=== PATIENT | female | born 1970 | race Caucasian/White ===

== ENCOUNTER 2017-06-11 04:54 | Emergency (ER) | payer MEDICAID, OTHER ==
[~2017-06-11] VITALS: Ht 157.5 cm; Wt 87.0 kg
[~2017-06-11 04:54] MED LIST: CIPR500T4 PO; GLIP5TAB13 PO; HYDR-3498 PO; HYDR-762 PO
[2017-06-11 04:57] VITALS: Ht 157.5 cm; Wt 87.0 kg
[2017-06-11] MEDS ORDERED: ONDANSETRON 4 MG INJ IV STA (05:05)
[2017-06-11] MEDS ORDERED: morphine 4 MG/ML VIAL IV STA (05:05)
[2017-06-11] MEDS ORDERED: HYDR-906 PO (05:08)
[2017-06-11] MEDS ORDERED: IBUP-1542 PO (05:08)
--- NOTE | 2017-06-11 05:14 | ERA ---
ER Documentation Chief Complaint Date/Time DATE: 06/11/17 TIME: 05:09 Chief Complaint RUQ pain since last night with a hx of gallstones HPI The patient is a 45-year-old female, presenting to the ER because of right upper quadrant abdominal pain that began about 10 PM last night after eating. She has similar symptoms previously due to gallbladder attack. She denies fever , chills, neck pain, chest pain, dyspnea, nausea, vomiting, dysuria, diarrhea, constipation. She does not smoke nor drink Past medical history: Diabetes mellitus, cholelithiasis Past surgical history: None ROS All systems reviewed and are negative except as per history of present illness. Medications Home Meds Active Scripts Ibuprofen* (Motrin*) 600 Mg Tab, 600 MG PO Q6, #30 TAB Prov:PERLA REYES MD 06/11/17 Hydrocodone/Acetaminophen (Ebony 5-325 Tablet) 1 Each Tablet, 1 TAB PO Q6H Y for PAIN, #7 TAB Prov:PERLA REYES MD 06/11/17 Hydrocodone Bit-Acetaminophen* (Ebony*) 5-325 Mg Tab, 1 TAB PO Q6 Y for PAIN, # 7 TAB Prov:CASSY LAUGHLIN PA-C 03/01/16 Hydrocodone Bit-Acetaminophen* (Ebony*) 10-325 Mg Tablet, 1 TAB PO Q6 Y for PAIN , #20 TAB Prov:JASKARAN MELENDREZ 10/02/15 Ciprofloxacin Hcl* (Ciprofloxacin Hcl*) 500 Mg Tablet, 500 MG PO BID for 7 Days , TAB Prov:JASKARAN MELENDREZ 10/02/15 Reported Medications Glipizide* (Glipizide*) 5 Mg Tablet, 5 MG PO DAILY, TAB 10/02/15 Allergies Allergies: Coded Allergies: No Known Allergy (Unverified , 10/02/15) PMhx/Soc Hx Miscellaneous Medical Probl: Yes (DM) Hx Alcohol Use: No Hx Substance Use: No Hx Tobacco Use: No Physical Exam Vitals Vital Signs Date Time Temp Pulse Resp B/P Pulse Ox O2 Delivery O2 Flow Rate FiO2 06/11/17 04:57 98.3 78 20 127/60 98 Physical Exam Const: No acute distress. Head: Atraumatic. Eyes: Normal Conjunctiva. ENT: Normal External Ears, Nose and Mouth. Neck: Full range of motion. No meningismus. Resp: Clear to auscultation bilaterally. Cardio: Regular rate and rhythm. Abd: Soft, non distended, normal bowel sounds, mild right upper quadrant tenderness, no right lower quadrant, epigastric, CVA tenderness Skin: No petechiae or rashes. Back: No midline or flank tenderness. Ext: No cyanosis, or edema. Neur: Awake and alert. No focal deficit Psych: Normal Mood and Affect. Results 24 hrs Current Medications Medications (Trade) Dose Ordered Sig/Iván Route PRN Reason Start Time Stop Time Status Last Admin Dose Admin Sodium Chloride (NS) 1,000 ml @ 1,000 mls/hr Q1H ONCE IV 06/11/17 05:30 06/11/17 06:29 Morphine Sulfate (morphine) 4 mg ONCE STAT IV 06/11/17 05:05 06/11/17 05:07 DC Ondansetron HCl (Zofran Inj) 4 mg ONCE STAT IV 06/11/17 05:05 06/11/17 05:07 DC Procedures/MDM MEDICAL MAKING DECISION: The patient is a 46-year-old female, presenting with acute biliary colic. She was treated with 1 L normal saline, morphine 4 mg IV for pain, Zofran 4 mg IV for nausea with good response. The labs are pending. If the labs are unremarkable, she is stable for outpatient follow-up The differential diagnoses considered include but are not limited to cholelithiasis, cholecystitis, cystitis, pancreatitis, hepatitis, gastritis, peptic ulcer disease, gastric ulcer, appendicitis, diverticulitis, cholangitis, choledocholithiasis, partial small bowel obstruction. Departure Diagnosis: Primary Impression: Biliary colic Condition: Good Patient Instructions: Biliary Colic With Gallstone (Confirmed) Additional Instructions: Call your primary care doctor TOMORROW for an appointment general surgery for elective cholecystectomy during the next 2-3 days.See the doctor sooner or return here if your condition worsens before your appointment time. She was discharged with Ebony and Motrin Labs are pending at the time of dictation PERLA REYES MD Jun 11, 2017 05:14
[2017-06-11 05:21] LABS: URINE BLOOD (Dip) POC Trace-lysed (NEGATIVE)
[2017-06-11] MEDS ORDERED: SOD CHLORIDE 0.9% 1,000 ML IV ONE (05:30)
[2017-06-11 05:31] LABS: ADD SCAN DIFF NO
[2017-06-11 05:32] LABS: BASOPHILS % 0.4 % (0.0-2.0); EOSINOPHILS # 0.1 10^3/ul (0.0-0.5); EOSINOPHILS % 1.2 % (0.0-7.0); HEMATOCRIT 35.4 % (37.0-47.0); HEMOGLOBIN 11.5 g/dl (12.0-16.0); LYMPHOCYTES # 2.1 10^3/ul (0.8-2.9); LYMPHOCYTES % 20.5 % (15.0-51.0); MEAN CORPUSCULAR HEMOGLOBIN 28.9 pg (29.0-33.0); MEAN CORPUSCULAR HGB CONC 32.5 g/dl (32.0-37.0); MEAN CORPUSCULAR VOLUME 88.9 fl (82.0-101.0); MEAN PLATELET VOLUME 10.7 fl (7.4-10.4); MONOCYTE # 0.8 10^3/ul (0.3-0.9); MONOCYTES % 7.6 % (0.0-11.0); NEUTROPHIL # 7.3 10^3/ul (1.6-7.5); NEUTROPHILS % 69.9 % (39.0-77.0); PLATELET COUNT 254 10^3/UL (140-415); RED BLOOD COUNT 3.98 10^6/ul (4.20-5.40); WHITE BLOOD COUNT 10.4 10^3/ul (4.8-10.8)
[2017-06-11 05:51] LABS: ALBUMIN 4.2 g/dl (3.3-4.9); ALBUMIN/GLOBULIN RATIO 1.55; BILIRUBIN,INDIRECT 0.1 mg/dl (0-1.1); BILIRUBIN,TOTAL 0.1 mg/dl (0.2-1.3); CALCIUM 8.4 mg/dl (8.4-10.2); CREATININE 0.59 mg/dl (0.44-1.00); POTASSIUM 3.9 mmol/L (3.5-5.1); TOTAL PROTEIN 6.9 g/dl (6.1-8.1)
[2017-06-11] MEDS ORDERED: KETOROLAC 30 MG INJ IV ONE (05:52)
== END 2017-06-11 06:20 | disposition home or self-care (01) ==
LOC: E/R 04:54
DX: K80.50 Calculus of bile duct without cholangitis or cholecystitis without obstruction (principal); E11.9 Type 2 diabetes mellitus without complications; Z79.84 Long term (current) use of oral hypoglycemic drugs
CPT/HCPCS: 80053; 81003; 83690; 85025; J1885; J2270; J2405; J7030; 36415; 96374; 96375